=== PATIENT | male | born 1955 | race Two or more races ===

== ENCOUNTER 2018-01-31 14:50 | Emergency (ER) | payer OTHER ==
[~2018-01-31] VITALS: Ht 177.8 cm; Wt 103.4 kg
--- NOTE | 2018-01-31 15:14 | Emergency Room Report ---
History of Present Illness General Chief Complaint: Abdominal Pain Source: Patient Present Illness HPI Patient is a 62-year-old male presenting with 24 hours of increasing right lower quadrant abdominal pain. Pain radiates to the right flank and right groin. It is constant at a low level but every once in a while he comes sharp. Patient called his physician and was told come to the emergency department to rule out an appendicitis. He denies any fevers or chills, nausea or vomiting. No worsening or alleviating factors. Allergies: Coded Allergies: No Known Allergies (Unverified , 01/31/18) Patient History Past Medical History: HTN, psych hx Past Surgical History: none Pertinent Family History: none Social History: Reports: alcohol use; Denies: smoking, drug use Nursing Documentation-[place] Past Medical History: No History, Except For Hx Hypertension: Yes Review of Systems Constitutional: Denies: no symptoms, see HPI, chills, sweats, fever, malaise, weakness, other Eye: Denies: no symptoms, see HPI, eye pain, blurred vision, tearing, double vision, nose pain, nose congestion, acuity changes, discharge, other ENT: Denies: no symptoms, see HPI, ear pain, ear discharge, nose pain, nose congestion, throat pain, throat swelling, mouth pain, hearing loss, nasal discharge, other Respiratory: Denies: no symptoms, see HPI, cough, orthopnea, shortness of breath, stridor, wheezing, [place], sputum, other Cardiovascular: Denies: no symptoms, see HPI, chest pain, edema, palpitations, syncope, PND, other Gastrointestinal: Reports: abdominal pain; Denies: no symptoms, see HPI, constipation, diarrhea, nausea, vomiting, melena, hematemesis, other Genitourinary: Denies: no symptoms, see HPI, discharge, dysuria, frequency, hematuria, pain, retention, incontinence, urgency, vag bleed/dc, other Musculoskeletal: Denies: no symptoms, see HPI, back pain, gout, joint pain, joint swelling, muscle pain, muscle stiffness, other Skin: Denies: no symptoms, see HPI, rash, change in color, change in hair/nails , dryness, lesions, other Psychiatric: Denies: no symptoms, see HPI, prior hx, anxiety, depressed feelings, emotional problems, SI, HI, hallucinations, other Neurological: Denies: no symptoms, see HPI, headache, numbness, paresthesia, seizure, tingling, tremors, focal weakness, syncope, dizziness, other Hematologic/Lymphatic: Denies: no symptoms, see HPI, anemia, blood clots, easy bleeding, easy bruising, swollen glands, diathesis, other Physical Exam Vital Signs Date Time Temp Pulse Resp B/P (MAP) Pulse Ox O2 Delivery O2 Flow Rate FiO2 01/31/18 14:54 97.5 61 18 150/86 98 Room Air 97.5 Sp02 EP Interpretation: reviewed, normal General Appearance: no apparent distress, alert, GCS 15, non-toxic Head: normocephalic, atraumatic Eyes: bilateral eye normal inspection, bilateral eye PERRL ENT: hearing grossly normal, normal pharynx, no angioedema, normal voice Neck: full range of motion, supple/symm/no masses Respiratory: chest non-tender, lungs clear, normal breath sounds, speaking full sentences Cardiovascular #1: regular rate, rhythm, no edema Cardiovascular #2: 2+ carotid (R), 2+ carotid (L), 2+ radial (R), 2+ radial (L) , 2+ dorsalis pedis (R), 2+ dorsalis pedis (L) Gastrointestinal: normal bowel sounds, soft, no peritonitis, non-distended, no guarding, no rebound, tenderness - mild RLQ TTP Rectal: deferred Genitourinary: normal inspection, no CVA tenderness Musculoskeletal: back normal, gait/station normal, normal range of motion, non- tender, calf tenderness Neurologic: alert, oriented x3, responsive, motor strength/tone normal, sensory intact, speech normal Psychiatric: judgement/insight normal, memory normal, mood/affect normal, no suicidal/homicidal ideation Reflexes: 3+ bicep (R), 3+ bicep (L), 3+ tricep (R), 3+ tricep (L), 3+ knee (R) , 3+ knee (L) Skin: normal color, no rash, warm/dry, well hydrated Lymphatic: no adenopathy Medical Decision Making Diagnostic Impression: Primary Impression: Kidney stone on right side ER Course Patient's workup shows evidence of a 2-3 mm stone in the distal right ureter with mild hydro-. CT also shows a normal appendix. Patient's laboratory studies show a mild left shift with normal white count and some evidence of pyuria. However, the patient appears well, comfortable, afebrile, and in no distress. I believe the patient can be safely discharged home with close follow -up. He has both a urologist and a GP who he can follow with. Will be sent home with pain meds and antibiotics and Flomax. Laboratory Tests Test 01/31/18 15:07 White Blood Count 9.5 K/UL (4.8-10.8) Red Blood Count 5.34 M/UL (4.70-6.10) Hemoglobin 16.4 G/DL (14.2-18.0) Hematocrit 46.6 % (42.0-52.0) Mean Corpuscular Volume 87 FL (80-99) Mean Corpuscular Hemoglobin 30.8 PG (27.0-31.0) Mean Corpuscular Hemoglobin Concent 35.3 G/DL (32.0-36.0) Red Cell Distribution Width 12.1 % (11.6-14.8) Platelet Count 194 K/UL (150-450) Mean Platelet Volume 8.8 FL (6.5-10.1) Neutrophils (%) (Auto) 78.7 % (45.0-75.0) H Lymphocytes (%) (Auto) 11.7 % (20.0-45.0) L Monocytes (%) (Auto) 8.3 % (1.0-10.0) Eosinophils (%) (Auto) 0.8 % (0.0-3.0) Basophils (%) (Auto) 0.6 % (0.0-2.0) Urine Color Brown Urine Appearance Slightly cloudy Urine pH 5 (4.5-8.0) Urine Specific [place] 1.025 (1.005-1.035) Urine Protein 2+ (NEGATIVE) H Urine Glucose (UA) Negative (NEGATIVE) Urine Ketones 1+ (NEGATIVE) H Urine Occult Blood 5+ (NEGATIVE) H Urine Nitrite Positive (NEGATIVE) H Urine Bilirubin Negative (NEGATIVE) Urine Urobilinogen 1 MG/DL (0.0-1.0) H Urine Leukocyte Esterase 2+ (NEGATIVE) H Urine RBC 10-15 /HPF (0 - 0) H Urine WBC 5-10 /HPF (0 - 0) H Urine Squamous Epithelial Cells None /LPF (NONE/OCC) Urine Amorphous Sediment Few /LPF (NONE) H Urine Bacteria Moderate /HPF (NONE) H Sodium Level 141 MMOL/L (136-145) Potassium Level 2.9 MMOL/L (3.5-5.1) L Chloride Level 102 MMOL/L (98-107) Carbon Dioxide Level 28 MMOL/L (21-32) Anion Gap 11 mmol/L (5-15) Blood Urea Nitrogen 18 mg/dL (7-18) Creatinine 1.2 MG/DL (0.55-1.30) Estimate Glomerular Filtration Rate > 60 mL/min (>60) Glucose Level 157 MG/DL (74-106) H Calcium Level 9.6 MG/DL (8.5-10.1) Total Bilirubin 0.7 MG/DL (0.2-1.0) Aspartate Amino Transferase (AST) 34 U/L (15-37) Alanine Aminotransferase (ALT) 59 U/L (12-78) Alkaline Phosphatase 39 U/L (46-116) L Total Protein 7.8 G/DL (6.4-8.2) Albumin 3.8 G/DL (3.4-5.0) Globulin 4.0 g/dL Albumin/Globulin Ratio 0.9 (1.0-2.7) L Lipase 138 U/L (73-393) Last Vital Signs Date Time Temp Pulse Resp B/P (MAP) Pulse Ox O2 Delivery O2 Flow Rate FiO2 01/31/18 14:54 97.5 61 18 150/86 98 Room Air 97.5 Status: improved Disposition: HOME, SELF-CARE Condition: Stable Scripts Cephalexin* (KEFLEX*) 500 Mg Capsule 500 MG ORAL EVERY 6 HOURS for 10 Days, #40 CAP Prov: Ivan Phelps MD 01/31/18 Ondansetron (Zofran) 4 Mg Tablet 4 MG ORAL Q6H PRN for Nausea & Vomiting, #30 TAB 0 Refills Prov: Ivan Phelps MD 01/31/18 Hydrocodone Bit/Acetaminophen 5-325* (NORCO 5-325*) 1 Each Tablet 1 TAB ORAL Q6H PRN for For Pain, #10 TAB 0 Refills Prov: Ivan Phelps MD 01/31/18 Tamsulosin Hcl (TAMSULOSIN HCL*) 0.4 Mg Cap.er.24h 0.4 MG ORAL BEDTIME for 30 Days, #30 CAP Prov: Ivan Phelps MD 01/31/18 Patient Instructions: Kidney Stones, [id number] Ivan Phelps MD Jan 31, 2018 15:14
[2018-01-31] MEDS ORDERED: Morphine Sulfate 4mg/ml Inj (IV USE ONLY) IVP ONE (15:15)
[2018-01-31 15:47] LABS: APPEARANCE,URINE SLIGHTLY CLOUDY; BILIRUBIN, URINE NEGATIVE (NEGATIVE); COLOR,URINE BROWN; GLUCOSE, URINE (UA) NEGATIVE (NEGATIVE); KETONES,URINE 1+ (NEGATIVE); LEUKOCYTE ESTERASE ,URINE 2+ (NEGATIVE); NITRITE,URINE POSITIVE (NEGATIVE); PH,URINE 5 (4.5-8.0); PROTEIN,URINE 2+ (NEGATIVE); UROBILINOGEN,URINE 1 MG/DL (0.0-1.0)
[2018-01-31 15:58] LABS: BASOPHILS % (AUTO) 0.6 % (0.0-2.0); EOSINOPHILS % (AUTO) 0.8 % (0.0-3.0); HEMATOCRIT 46.6 % (42.0-52.0); HEMOGLOBIN 16.4 G/DL (14.2-18.0); LYMPHOCYTES % (AUTO) 11.7 % (20.0-45.0); MEAN CORPUSCULAR VOLUME 87 FL (80-99); MONOCYTES % (AUTO) 8.3 % (1.0-10.0); NEUTROPHILS % (AUTO) 78.7 % (45.0-75.0); PLATELET COUNT 194 K/UL (150-450); RED BLOOD COUNT 5.34 M/UL (4.70-6.10); RED CELL DISTRIBUTION WIDTH 12.1 % (11.6-14.8); WHITE BLOOD COUNT 9.5 K/UL (4.8-10.8)
[2018-01-31 16:09] LABS: ANION GAP 11 mmol/L (5-15); BLOOD UREA NITROGEN 18 mg/dL (7-18); CALCIUM 9.6 MG/DL (8.5-10.1); CARBON DIOXIDE 28 MMOL/L (21-32); CHLORIDE 102 MMOL/L (98-107); CREATININE 1.2 MG/DL (0.55-1.30); POTASSIUM 2.9 MMOL/L (3.5-5.1); SODIUM 141 MMOL/L (136-145)
[2018-01-31 16:14] LABS: ALANINE AMINOTRANSFERASE 59 U/L (12-78); ALBUMIN 3.8 G/DL (3.4-5.0); ALBUMIN/GLOBULIN RATIO 0.9 (1.0-2.7); ALKALINE PHOSPHATASE 39 U/L (46-116); ASPARTATE AMINO TRANSFERASE 34 U/L (15-37); BILIRUBIN,TOTAL 0.7 MG/DL (0.2-1.0)
--- NOTE | 2018-01-31 16:39 | Diagnostic Imaging Report ---
Indication: Right lower quadrant pain. Technique: Noncontrast CT of the abdomen and pelvis utilizing automated exposure control. Axial, sagittal and coronal reformats presented. CT dose: Total DLP 1035.57 mGycm; CTDI vol 19.07 mGy Comparison: None Findings: Please note that evaluation of the abdominal and pelvic viscera and vascular structures is limited without the use of intravenous and oral contrast. Within these limitations the following observations are made: There are dependent atelectatic changes in the lung bases. Some peripheral reticular opacities also noted in the middle lobe and lingula. Very mild/early interstitial lung disease not excluded. No pneumothorax or pleural effusion. Heart size within normal limits. There is trace pericardial fluid. Well-circumscribed low attenuation hepatic lesions are noted, not fully characterize but possibly representing simple hepatic cysts. Gallbladder unremarkable. No appreciable biliary ductal dilatation. Hepatic contour appears smooth. Spleen, adrenal glands and pancreas grossly unremarkable. There is asymmetric engorgement of the right kidney compared to the left. Perinephric stranding is seen bilaterally although asymmetrically increased on the right. There are multiple punctate stones in the right kidney. There is a 1 to 2 mm stone in the distal right ureter (series 3 image 122) additionally there is a approximately 3 mm stone in the right posterior bladder. There is mild asymmetric prominence of the right ureter and mild fullness of the right renal collecting system. There is bladder wall thickening which is possibly exaggerated due to underdistention. Prostate is mildly enlarged. No evidence of obstructive uropathy on the left. There is a punctate nonobstructing stone in the upper pole the left kidney. No free intraperitoneal air or fluid. No evidence of bowel obstruction. Appendix is normal. There is diverticulosis with thickening in some very mild inflammatory change surrounding portions of the sigmoid colon which may be reflective of a very early diverticulitis in the appropriate clinical setting. No pathologically enlarged lymphadenopathy. There is a small hiatal hernia. Abdominal aorta normal in caliber. There are degenerative changes. No acute osseous abnormality. A tiny fat-containing umbilical hernia is noted. IMPRESSION: Limited exam without intravenous and oral contrast. Within these limitations: * 2 to 3 mm stone in the distal right ureter with resultant mild right-sided obstructive uropathy and perinephric stranding. Subcentimeter stone also noted in the right aspect of the bladder likely related to recently passed stone. There is some bladder wall thickening which may be exaggerated by underdistention. Correlate with urinalysis to exclude superimposed infection. * Additional nonobstructing bilateral punctate renal stones. No evidence of hydronephrosis on the left. * Colonic diverticulosis with thickening and mild inflammatory stranding about portions of the sigmoid colon. Correlate clinically to assess for a mild diverticulitis. No evidence of bowel obstruction, perforation or abscess formation. * Normal appendix. * Very subtle peripheral reticular nodular opacities in the middle lobe and lingula. A mild interstitial lung disease not excluded. Additional incidental findings as above. The CT scanner at [facility] is accredited by the [employer] and the scans are performed using protocols designed to limit radiation exposure to as low as reasonably achievable to attain images of sufficient resolution adequate for diagnostic evaluation.
[2018-01-31] MEDS ORDERED: Ketorolac 30mg Inj IV ONE (16:45)
[2018-01-31] MEDS ORDERED: NORCO 5-325 TA1 EACH ORAL (16:55)
[2018-01-31] MEDS ORDERED: TAMSULOSIN HCL0.4 MG ORAL (16:55)
[2018-01-31] MEDS ORDERED: ZOFRAN4 MG ORAL (16:55)
[2018-01-31] MEDS ORDERED: CEPHALEXIN500 MG ORAL (16:56)
[2018-01-31 17:12] VITALS: BP 150/86
== END 2018-01-31 17:13 | disposition home or self-care (01) ==
LOC: EMR 15:36
DX: N20.0 Calculus of kidney (principal); K57.30 Diverticulosis of large intestine without perforation or abscess without bleeding
CPT/HCPCS: 36415; 74176; 80053; 81003; 83690; 85025; 87086; 96361; 96374; 96375; 99284; J1885; J2270; J2405

== ENCOUNTER 2020-05-23 11:20 | Emergency (ER) | payer OTHER ==
[~2020-05-23] VITALS: Ht 180.3 cm; Wt 110.7 kg
[~2020-05-23 11:20] MED LIST: CEPHALEXIN500 MG ORAL; NORCO 5-325 TA1 EACH ORAL; TAMSULOSIN HCL0.4 MG ORAL; ZOFRAN4 MG ORAL
[2020-05-23 11:24] VITALS: BP 165/91
--- NOTE | 2020-05-23 11:24 | NUR ---
ED Nurse Note: Pt walked in to ED from home c/o right flank pain radiating to lower abdomen onset today at 0500 and is getting worse. Pt has hx of kidney stones. Pt reports small amount of blood in his urine couple days ago. Pt AAOx4, verbally responsive. No SOB, on room air. Afebrile.
--- NOTE | 2020-05-23 11:58 | NUR ---
ED Nurse Note: Pt taken to CT via wc.
[2020-05-23 11:59] LABS: APPEARANCE,URINE CLOUDY; BASOPHILS % (AUTO) 0.7 % (0.0-2.0); BILIRUBIN, URINE NEGATIVE (NEGATIVE); EOSINOPHILS % (AUTO) 1.6 % (0.0-3.0); GLUCOSE, URINE (UA) NEGATIVE (NEGATIVE); HEMATOCRIT 51.3 % (42.0-52.0); HEMOGLOBIN 16.6 G/DL (14.2-18.0); KETONES,URINE 1+ (NEGATIVE); LEUKOCYTE ESTERASE ,URINE 2+ (NEGATIVE); LYMPHOCYTES % (AUTO) 13.8 % (20.0-45.0); MEAN CORPUSCULAR VOLUME 94 FL (80-99); MONOCYTES % (AUTO) 8.1 % (1.0-10.0); NEUTROPHILS % (AUTO) 75.8 % (45.0-75.0); NITRITE,URINE POSITIVE (NEGATIVE); PH,URINE 5 (4.5-8.0); PLATELET COUNT 164 K/UL (150-450); PROTEIN,URINE 3+ (NEGATIVE); RED BLOOD COUNT 5.47 M/UL (4.70-6.10); RED CELL DISTRIBUTION WIDTH 13.6 % (11.6-14.8); UROBILINOGEN,URINE 1 MG/DL (0.0-1.0); WHITE BLOOD COUNT 7.1 K/UL (4.8-10.8)
[2020-05-23] MEDS ORDERED: Ketorolac 60mg Inj IM ONE (12:00)
[2020-05-23 12:06] LABS: COLOR,URINE BROWN
--- NOTE | 2020-05-23 12:08 | NUR ---
ED Nurse Note: Pt returned from CT, JOAO at bedside.
[2020-05-23 12:15] LABS: CALCIUM 8.5 MG/DL (8.5-10.1); CREATININE 1.5 MG/DL (0.55-1.30); POTASSIUM 4.1 MMOL/L (3.5-5.1)
[2020-05-23 12:20] LABS: ALBUMIN 3.7 G/DL (3.4-5.0); ALBUMIN/GLOBULIN RATIO 0.9 (1.0-2.7); BILIRUBIN,TOTAL 0.6 MG/DL (0.2-1.0)
--- NOTE | 2020-05-23 13:03 | Emergency Room Report ---
History of Present Illness General Chief Complaint: Back Pain-No Injury Source: Patient Present Illness HPI The patient states that yesterday he suddenly developed right sided flank pain radiating to his right groin. He states this is very similar to his previous kidney stones. He denies fever or chills. He denies nausea or vomiting. He denies dysuria or hematuria. He did note that his urine was dark in color. He has no other complaints. 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 COVID-19 Screening: Negative COVID-19 COVID-19 Testing Source: 01/04/20 Patient History Past Medical History: see triage record, HTN Social History: Denies: smoking, alcohol use, drug use Reviewed Nursing Documentation: PMH: Agreed; PSxH: Agreed Nursing Documentation-PMH Hx Hypertension: Yes Review of Systems All Other Systems: negative except mentioned in HPI Physical Exam Vital Signs Date Time Temp Pulse Resp B/P (MAP) Pulse Ox O2 Delivery O2 Flow Rate FiO2 05/23/20 11:23 98.1 55 16 165/91 (115) 96 Room Air Sp02 EP Interpretation: reviewed, normal General Appearance: no apparent distress, alert, GCS 15, non-toxic Head: normocephalic, atraumatic Eyes: bilateral eye normal inspection, bilateral eye PERRL ENT: hearing grossly normal, normal pharynx, no angioedema, normal voice Neck: full range of motion, supple/symm/no masses Respiratory: no respiratory distress, no retraction, no accessory muscle use, speaking full sentences Cardiovascular #1: regular rate, rhythm Gastrointestinal: normal bowel sounds, non tender, soft, non-distended, no guarding, no rebound Rectal: deferred Genitourinary: CVA tenderness (R) Musculoskeletal: back normal, normal range of motion, gait/station normal, non- tender Neurologic: alert, motor strength/tone normal, oriented x3, sensory intact, responsive, speech normal Psychiatric: judgement/insight normal, memory normal, mood/affect normal, no suicidal/homicidal ideation Skin: no rash, normal color Medical Decision Making Diagnostic Impression: Primary Impression: Urolithiasis Additional Impression: UTI (urinary tract infection) ER Course This patient has a moderate sized kidney stone in the right ureter. This is causing mild right hydronephrosis. The patient has a urinalysis that is borderline for a urinary tract infection. There is only 5-10 white blood cells, but there is nitrite and leukoesterase. There is also moderate bacteria. I gave the patient IV Zosyn and had plan on admitting him for further evaluation by urology. However, the patient declined admission at this time. I was able to contact the patient's primary care physician Dr. Chacon. He states that he can see the patient tomorrow morning and arrange for a urology evaluation tomorrow. I did give the patient broad-spectrum antibiotics and will place the patient on oral Keflex. Patient is nontoxic and afebrile. However, I did educate the patient that he could become rapidly ill and could deteriorate given that he does have an obstructing stone. The patient indicated understanding and intention to return if his symptoms worsen. The patient did leave AGAINST MEDICAL ADVICE. The patient is given close return precautions and close follow- up instructions. Laboratory Tests Test 05/23/20 11:45 White Blood Count 7.1 K/UL (4.8-10.8) Red Blood Count 5.47 M/UL (4.70-6.10) Hemoglobin 16.6 G/DL (14.2-18.0) Hematocrit 51.3 % (42.0-52.0) Mean Corpuscular Volume 94 FL (80-99) Mean Corpuscular Hemoglobin 30.4 PG (27.0-31.0) Mean Corpuscular Hemoglobin Concent 32.4 G/DL (32.0-36.0) Red Cell Distribution Width 13.6 % (11.6-14.8) Platelet Count 164 K/UL (150-450) Mean Platelet Volume 9.3 FL (6.5-10.1) Neutrophils (%) (Auto) 75.8 % (45.0-75.0) H Lymphocytes (%) (Auto) 13.8 % (20.0-45.0) L Monocytes (%) (Auto) 8.1 % (1.0-10.0) Eosinophils (%) (Auto) 1.6 % (0.0-3.0) Basophils (%) (Auto) 0.7 % (0.0-2.0) Urine Color Brown Urine Appearance Cloudy Urine pH 5 (4.5-8.0) Urine Specific [place] 1.025 (1.005-1.035) Urine Protein 3+ (NEGATIVE) H Urine Glucose (UA) Negative (NEGATIVE) Urine Ketones 1+ (NEGATIVE) H Urine Blood 5+ (NEGATIVE) H Urine Nitrite Positive (NEGATIVE) H Urine Bilirubin Negative (NEGATIVE) Urine Urobilinogen 1 MG/DL (0.0-1.0) H Urine Leukocyte Esterase 2+ (NEGATIVE) H Urine RBC Tntc /HPF (0 - 0) H Urine WBC 5-10 /HPF (0 - 0) H Urine Squamous Epithelial Cells Occasional /LPF Urine Bacteria Moderate /HPF (NONE) H Sodium Level 143 MMOL/L (136-145) Potassium Level 4.1 MMOL/L (3.5-5.1) Chloride Level 108 MMOL/L (98-107) H Carbon Dioxide Level 28 MMOL/L (21-32) Anion Gap 7 mmol/L (5-15) Blood Urea Nitrogen 20 mg/dL (7-18) H Creatinine 1.5 MG/DL (0.55-1.30) H Estimated Glomerular Filtration Rate 47.3 mL/min (>60) Glucose Level 148 MG/DL (74-106) H Calcium Level 8.5 MG/DL (8.5-10.1) Total Bilirubin 0.6 MG/DL (0.2-1.0) Aspartate Amino Transferase (AST) 22 U/L (15-37) Alanine Aminotransferase (ALT) 27 U/L (12-78) Alkaline Phosphatase 41 U/L (46-116) L Total Protein 7.6 G/DL (6.4-8.2) Albumin 3.7 G/DL (3.4-5.0) Globulin 3.9 g/dL Albumin/Globulin Ratio 0.9 (1.0-2.7) L CT/MRI/US Diagnostic Results CT/MRI/US Diagnostic Results : Imaging Test Ordered: CT abd/pelvis Impression IMPRESSION: 1. 5.4 x 6.6 mm stone in the mid right ureter resulting in mild right hydronephrosis. Mild right perinephric and periureteral stranding. 2. A few tiny nonobstructive bilateral renal stones. 3. Colonic diverticulosis. Thickening of the sigmoid colon appears chronic. 4. Prominent prostate. 5. Mild peripheral septal thickening of the lungs. Mild atelectasis at the lingula and bilateral lower lobes. Query early fibrotic changes. 6. Scoliosis and degenerative changes of the spine. Progressive endplate sclerotic changes at L2-3 and L4-5. Last Vital Signs Date Time Temp Pulse Resp B/P (MAP) Pulse Ox O2 Delivery O2 Flow Rate FiO2 05/23/20 12:33 98.1 05/23/20 11:24 55 16 165/91 96 Room Air Status: improved Disposition: AGAINST MEDICAL ADVICE Condition: Improved Referrals: NON PHYSICIAN (PCP) Selene Diaz DO May 23, 2020 13:03
[2020-05-23] MEDS ORDERED: Zosyn 2.25gm inj IV ONE (13:15)
[2020-05-23] MEDS ORDERED: Zosyn 2.25gm in NS 110ML IVPB ONE (13:15)
--- NOTE | 2020-05-23 13:18 | Diagnostic Imaging Report ---
EXAM: CT Abdomen and Pelvis Without Intravenous Contrast CLINICAL HISTORY: PAIN TECHNIQUE: Axial computed tomography images of the abdomen and pelvis without intravenous contrast. CTDI is 18.50 mGy and DLP is 1044.20 mGy-cm. One or more of the following dose reduction techniques were used: automated exposure control, adjustment of the mA and/or kV according to patient size, use of iterative reconstruction technique. COMPARISON: CT abdomen and pelvis 01/31/18 FINDINGS: Lung bases: Mild peripheral septal thickening of the lungs. Mild atelectasis at the lingula and bilateral lower lobes. Query early fibrotic changes. Mediastinum: Small hiatal hernia. ABDOMEN: Liver: A few small low-density lesion left lobe liver, largest 1.7 cm. Gallbladder and bile ducts: Unremarkable. No calcified stones. No ductal dilation. Pancreas: Unremarkable. No ductal dilation. Spleen: Unremarkable. No splenomegaly. Adrenals: Unremarkable. No mass. Kidneys and ureters: 5.4 x 6.6 mm stone in the mid right ureter resulting in mild right hydronephrosis. Mild right perinephric and periureteral stranding. A few tiny nonobstructive bilateral renal stones. 11 mm low-density lesion left kidney, too small to characterize. Stomach and bowel: Colonic diverticulosis. Thickening of the sigmoid colon appears chronic. No obstruction. PELVIS: Appendix: Normal appendix. Bladder: Unremarkable. No stones. Reproductive: Prominent prostate. ABDOMEN and PELVIS: Intraperitoneal space: Unremarkable. No free air. No significant fluid collection. Bones/joints: Scoliosis and degenerative changes of the spine. Progressive endplate sclerotic changes at L2-3 and L4-5. No acute fracture. No dislocation. Soft tissues: Small to moderate fat-containing right inguinal hernia. Vasculature: Unremarkable. No abdominal aortic aneurysm. Lymph nodes: Small to borderline bilateral inguinal lymph nodes. IMPRESSION: 1. 5.4 x 6.6 mm stone in the mid right ureter resulting in mild right hydronephrosis. Mild right perinephric and periureteral stranding. 2. A few tiny nonobstructive bilateral renal stones. 3. Colonic diverticulosis. Thickening of the sigmoid colon appears chronic. 4. Prominent prostate. 5. Mild peripheral septal thickening of the lungs. Mild atelectasis at the lingula and bilateral lower lobes. Query early fibrotic changes. 6. Scoliosis and degenerative changes of the spine. Progressive endplate sclerotic changes at L2-3 and L4-5.
[2020-05-23] MEDS ORDERED: CEPHALEXIN500 MG ORAL ×2 (14:17→14:24)
[2020-05-23] MEDS ORDERED: IBUPROFEN800 MG ORAL (14:18)
[2020-05-23] MEDS ORDERED: NORCO 5-325 TA1 EAC1 ORAL (14:18)
[2020-05-23 14:30] VITALS: BP 135/77
--- NOTE | 2020-05-23 14:30 | NUR ---
ED Nurse Note: Pt cleared by ERPA for discharge. DC instructions/prescription was given and explained to pt and verbalized understanding of teachings. All medical deviecs such as ID band and IV line removed. Pt is AAO x4, ambulatory and left with all personal belongings.
== END 2020-05-23 15:00 | disposition left against medical advice (07) ==
LOC: EMR 12:04
DX: N20.9 Urinary calculus, unspecified (principal); N39.0 Urinary tract infection, site not specified; I10 Essential (primary) hypertension; Z53.29 Procedure and treatment not carried out because of patient's decision for other reasons
CPT/HCPCS: 36415; 74176; 80053; 81003; 85025; 87086; 96365; 96372; 99284; J2543; J7030